=== PATIENT | male | born 1985 | race Two or more races ===

== ENCOUNTER 2022-03-31 14:08 | Emergency (ER) | payer SELFPAY ==
[~2022-03-31] VITALS: Ht 188 cm; Wt 111.5 kg
[2022-03-31 16:12] VITALS: BP 154/92
[2022-03-31] MEDS ORDERED: KETOROLAC TROMETH 60MG/2ML VIAL IM ONE (16:15)
[2022-03-31] MEDS ORDERED: PRED20TA2 PO (16:32)
[2022-03-31] MEDS ORDERED: IBUP800T27 PO (16:32)
== END 2022-03-31 16:38 | disposition home or self-care (01) ==
LOC: ER 14:08
DX: M54.41 Lumbago with sciatica, right side (principal); Z79.1 Long term (current) use of non-steroidal anti-inflammatories (NSAID); Z79.899 Other long term (current) drug therapy
CPT/HCPCS: 96372; 99283; J1885